=== PATIENT | male | born 1935 ===

== ENCOUNTER 2018-10-30 15:08 | Observation (INO) | payer OTHER ==
[2018-10-30 15:48] LABS: Absolute Monocytes 1.2 K/uL (0.1-1.3); Absolute Neutrophil 8.6 K/uL (1.8-8.0); Basophils % 0.9 % (0-1.3); Eosinophils % 2.1 % (0-4.4); Hematocrit 45.2 % (39.6-49.0); Lymphocytes % 16.5 % (15.3-44.8); MPV 9.8 fL (7.6-11.3); Monocytes % 9.6 % (3.3-12.3); RBC Red Blood Cell Count 5.01 M/uL (4.33-5.43)
[2018-10-30] MEDS ORDERED: AZITHROMYCIN 250 MG TAB ONE (15:52)
[2018-10-30] MEDS ORDERED: NA CHLORIDE 0.9% 1,000 ML ONE (15:52)
[2018-10-30] MEDS ORDERED: CEFTRIAXONE/SWI 1gm 1 GM/10 ML SYR ONE ×2 (15:53→23:04)
[2018-10-30 16:27] LABS: ALT/SGPT 17 U/L (12-78); AST/SGOT 17 U/L (15-37); Albumin 3.9 g/dL (3.4-5.0); Alkaline Phosphatase 76 U/L (45-117); BUN Blood Urea Nitrogen 17 mg/dL (7-18); Bicarbonate 30 mmol/L (21-32); Bilirubin Direct 0.3 mg/dL (0-0.2); Bilirubin Total 1.2 mg/dL (0.2-1.0); CKMB Creatine Kinase MB 2.6 ng/mL (0.3-3.6); Creatine Phosphokinase 135 U/L (39-308); Glucose Level 147 mg/dL (74-106); Lipase 89 U/L (73-393); NT PRO-BNP 47 pg/mL (<450); Potassium 3.3 mmol/L (3.5-5.1); Protein, Total 7.9 g/dL (6.4-8.2); Sodium Level 141 mmol/L (136-145); Troponin (Emerg Dept Use Only) < 0.02 ng/mL (0.0-0.045)
[2018-10-30 16:37] LABS: Magnesium 1.3 mg/dL (1.8-2.4)
--- NOTE | 2018-10-30 16:50 | RAD REPORT ---
EXAM DESCRIPTION: [facility] Single View10/30/2018 4:15 pm CLINICAL HISTORY: Cough COMPARISON: none FINDINGS: Mild bibasilar lung opacities suspected Upper lobes appear clear The heart is normal size IMPRESSION: Mild bibasilar lung opacities probably represent mild pneumonia. This be followed until it is clear to help exclude a post obstructive process/underlying mass
--- NOTE | 2018-10-30 17:04 | EDPHYS ---
Physician Documentation [facility] Name: Lambert Gavin Age: 83 yrs Sex: Male : 1935 Arrival Date: 10/30/2018 Time: 15:12 Bed 15 Private MD: ED Physician Song Boyce HPI: 10/30 15:39 This 83 yrs old Unknown Male presents to ER via Ambulatory with complaints of Cough, ma2 Congestion. 15:39 The patient or guardian reports cough. Onset: The symptoms/episode began/occurred ma2 gradually, 3 day(s) ago. Severity of symptoms: At their worst the symptoms were moderate, in the emergency department the symptoms are unchanged. Associated signs and symptoms: Pertinent positives: rhinorrhea, sore throat, Pertinent negatives: ear ache. The patient has experienced similar episodes in the past. Historical: - Allergies: 15:19 No Known Allergies; sv - PMHx: 15:19 Diabetes - NIDDM; High Cholesterol; sv - PSHx: 15:19 None; sv - Immunization history:: Adult Immunizations up to date. - Social history:: Patient/guardian denies using alcohol, street drugs, The patient lives with family, Smoking status: Patient/guardian denies using tobacco. - Family history:: not pertinent. - Ebola Screening: : No symptoms or risks identified at this time. ROS: 15:39 Constitutional: Negative for fever, chills, and weight loss, Cardiovascular: Negative ma2 for chest pain, palpitations, and edema. 15:39 Respiratory: Positive for cough, dyspnea on exertion, Negative for wheezing. 15:39 All other systems are negative. Exam: 15:39 Constitutional: This is a well developed, well nourished patient who is awake, alert, ma2 and in no acute distress. ENT: Nares patent. No nasal discharge, no septal abnormalities noted. Tympanic membranes are normal and external auditory canals are clear. Oropharynx with no redness, swelling, or masses, exudates, or evidence of obstruction, uvula midline. Mucous membranes moist. Neck: Trachea midline, no thyromegaly or masses palpated, and no cervical lymphadenopathy. Supple, full range of motion without nuchal rigidity, or vertebral point tenderness. No Meningismus. Chest/axilla: Normal chest wall appearance and motion. Nontender with no deformity. No lesions are appreciated. Cardiovascular: Regular rate and rhythm with a normal S1 and S2. No gallops, murmurs, or rubs. Normal PMI, no JVD. No pulse deficits. 15:39 Abdomen/GI: Soft, non-tender, with normal bowel sounds. No distension or tympany. No guarding or rebound. No evidence of tenderness throughout. MS/ Extremity: Pulses equal, no cyanosis. Neurovascular intact. Full, normal range of motion. Neuro: Awake and alert, GCS 15, oriented to person, place, time, and situation. Cranial nerves II-XII grossly intact. Motor strength 5/5 in all extremities. Sensory grossly intact. Cerebellar exam normal. Normal gait. 15:39 Respiratory: moderate respiratory distress is noted, Respirations: no acute changes, Breath sounds: bronchial sounds, + upper airway congestion. wheezing: is not appreciated, Respiratory rate: 20 Vital Signs: 15:20 BP 107 / 80; Pulse 115; Resp 20; Temp 97.9; Pulse Ox 92% ; Weight 99.79 kg; Height 5 sv ft. 10 in. (177.80 cm); Pain 3/10; 15:30 Pulse Ox 99% on 2 lpm NC; hb 16:00 BP 114 / 69; Pulse 100; Resp 20; Pulse Ox 97% on 2 lpm NC; hb 17:00 BP 146 / 63; Pulse 86; Resp 20; Pulse Ox 97% on 2 lpm NC; Pain 0/10; hb 20:13 BP 139 / 85; Pulse 79; Resp 16; Temp 97.6; Pulse Ox 97% on 2 lpm NC; jb4 15:20 Body Mass Index 31.57 (99.79 kg, 177.80 cm) sv MDM: 15:22 Patient medically screened. ma2 15:39 Differential Diagnosis: Bronchitis Influenza Upper Respiratory Infection Sinusitis ma2 Pharyngitis. Data reviewed: vital signs, nurses notes. Counseling: I had a detailed discussion with the patient and/or guardian regarding: the historical points, exam findings, and any diagnostic results supporting the discharge/admit diagnosis, the presence of at least one elevated blood pressure reading (>120/80) during this emergency department visit, the need for outpatient follow up. Response to treatment: the patient's symptoms have markedly improved after treatment. 17:02 ED course: +SIRS + pneumonia will admit for observation discussed with dr. hui . oh10/30 15:23 Order name: Blood Culture Adult (2) 10/30 15:23 Order name: BMP [facility] 10/30 15:23 Order name: CBC with Diff; Complete Time: 16:01 10/30 15:23 Order name: Ckmb oh10/30 15:23 Order name: CPK oh10/30 15:23 Order name: D-Dimer; Complete Time: 16:44 oh10/30 15:23 Order name: Hepatic Function oh10/30 15:23 Order name: Lipase; Complete Time: 16:44 oh10/30 15:23 Order name: Magnesium; Complete Time: 16:44 oh10/30 15:23 Order name: NT PRO-BNP; Complete Time: 16:44 oh10/30 15:23 Order name: PT-INR; Complete Time: 16:44 oh10/30 15:23 Order name: Ptt, Activated; Complete Time: 16:44 oh10/30 15:23 Order name: Troponin (emerg Dept Use Only); Complete Time: 16:44 oh10/30 15:23 Order name: Influenza Screen (a \T\ B); Complete Time: 16:44 oh10/30 15:23 Order name: XRAY CXR (1 view); Complete Time: 16:58 10/30 15:23 Order name: EKG; Complete Time: 15:24 10/30 15:23 Order name: Cardiac monitoring; Complete Time: 15:40 oh10/30 15:23 Order name: EKG - Nurse/Tech; Complete Time: 15:40 oh10/30 15:23 Order name: IV Saline Lock; Complete Time: 15:40 10/30 15:23 Order name: Labs collected and sent; Complete Time: 15:40 oh10/30 15:23 Order name: O2 Per Protocol; Complete Time: 15:40 oh10/30 15:24 Order name: Blood Culture [facility] 10/30 15:24 Order name: Basic Metabolic Panel; Complete Time: 16:44 [facility] 10/30 15:24 Order name: CKMB Creatine Kinase MB; Complete Time: 16:44 [facility] 10/30 15:24 Order name: Creatine Phosphokinase; Complete Time: 16:44 [facility]MO 10/30 15:24 Order name: Liver (Hepatic) Function; Complete Time: 16:44 EDMO 10/30 15:23 Order name: O2 Sat Monitoring; Complete Time: 15:40 ma2 Administered Medications: 15:57 Drug: Rocephin 1 grams Route: IV; Rate: calculated rate; Site: right antecubital; hb 15:58 Drug: NS 0.9% 1000 ml Route: IV; Rate: 1 bolus; Site: right antecubital; hb 17:20 Follow up: Response: No adverse reaction; IV Status: Completed infusion hb 15:58 Drug: AZITHromycin 500 mg Route: PO; hb 17:28 Follow up: Response: No adverse reaction hb 17:11 Drug: Magnesium Oxide 400 mg Route: PO; hb Disposition: 10/30/18 17:03 Hospitalization ordered by Concepción Hui for Observation. Preliminary diagnosis is Pneumonia due to other infectious organisms, not elsewhere classified. - Bed requested for Telemetry/MedSurg (observation). - Status is Observation. jb4 - Condition is Stable. - Problem is new. - Symptoms have improved. UTI on Admission? No Signatures: Dispatcher [employer] EDMO Sharyn Ivan RN RN Izzy Cagle RN RN mw Baxter, Heather, RN RN hb Bryson, James, RN RN jb4 Song Boyce MD MD ma2 Corrections: (The following items were deleted from the chart) 20:32 17:03 Hospitalization Ordered by Concepción Hui MD for Observation. Preliminary diagnosis mw is Pneumonia due to other infectious organisms, not elsewhere classified. Bed requested for Telemetry/MedSurg (observation). Status is Observation. Condition is Stable. Problem is new. Symptoms have improved. UTI on Admission? No. ma2 21:40 20:32 10/30/2018 17:03 Hospitalization Ordered by Concepción Hui MD for Observation. jb4 Preliminary diagnosis is Pneumonia due to other infectious organisms, not elsewhere classified. Bed requested for Telemetry/MedSurg (observation). Status is Observation. Condition is Stable. Problem is new. Symptoms have improved. UTI on Admission? No. mw
--- NOTE | 2018-10-30 17:04 | ER ---
Nurse's Notes [facility] Name: Lambert Gavin Age: 83 yrs Sex: Male : 1935 Arrival Date: 10/30/2018 Time: 15:12 Bed 15 Private MD: Diagnosis: Pneumonia due to other infectious organisms, not elsewhere classified Presentation: 10/30 15:18 Presenting complaint: Patient states: cough, congestion x 2 days. Transition of care: sv patient was not received from another setting of care. Onset of symptoms was October 28, 2018. Care prior to arrival: None. 15:18 Method Of Arrival: Ambulatory sv 15:18 Acuity: ZOE 3 sv 15:45 Risk Assessment: Do you want to hurt yourself or someone else? Patient reports no hb desire to harm self or others. Initial Sepsis Screen: Does the patient meet any 2 criteria? No. Patient's initial sepsis screen is negative. Does the patient have a suspected source of infection? No. Patient's initial sepsis screen is negative. Historical: - Allergies: 15:19 No Known Allergies; sv - PMHx: 15:19 Diabetes - NIDDM; High Cholesterol; sv - PSHx: 15:19 None; sv - Immunization history:: Adult Immunizations up to date. - Social history:: Patient/guardian denies using alcohol, street drugs, The patient lives with family, Smoking status: Patient/guardian denies using tobacco. - Family history:: not pertinent. - Ebola Screening: : No symptoms or risks identified at this time. Screenin:39 Abuse screen: Denies threats or abuse. Denies injuries from another. Nutritional hb screening: No deficits noted. Tuberculosis screening: No symptoms or risk factors identified. Fall Risk None identified. Assessment: 15:35 General: Appears in no apparent distress. Behavior is calm, cooperative. Pain: Pain hb currently is 3 out of 10 on a pain scale. Neuro: Level of Consciousness is awake, alert, obeys commands, Oriented to person, place, time, situation. Cardiovascular: Heart tones S1 S2 present Capillary refill < 3 seconds Patient's skin is warm and dry. Respiratory: Airway is patent Respiratory effort is even, unlabored, Respiratory pattern is regular, symmetrical, Breath sounds with rhonchi bilaterally. GI: No signs and/or symptoms were reported involving the gastrointestinal system. : No signs and/or symptoms were reported regarding the genitourinary system. EENT: No signs and/or symptoms were reported regarding the EENT system. Derm: Skin is intact, is healthy with good turgor. Musculoskeletal: No signs and/or symptoms reported regarding the musculoskeletal system. 16:25 Reassessment: Patient appears in no apparent distress at this time. No changes from hb previously documented assessment. Patient and/or family updated on plan of care and expected duration. Pain level reassessed. Patient is alert, oriented x 3, equal unlabored respirations, skin warm/dry/pink. 17:29 Reassessment: Patient appears in no apparent distress at this time. No changes from hb previously documented assessment. Patient and/or family updated on plan of care and expected duration. Pain level reassessed. Patient is alert, oriented x 3, equal unlabored respirations, skin warm/dry/pink. 18:30 Reassessment: Patient appears in no apparent distress at this time. No changes from hb previously documented assessment. Patient and/or family updated on plan of care and expected duration. Pain level reassessed. Patient is alert, oriented x 3, equal unlabored respirations, skin warm/dry/pink. Admission ordered, awaiting room assignment at this time. 19:20 Reassessment: Patient appears in no apparent distress at this time. Patient and/or jb4 family updated on plan of care and expected duration. Pain level reassessed. Patient is alert, oriented x 3, equal unlabored respirations, skin warm/dry/pink. 20:30 Reassessment: Patient appears in no apparent distress at this time. Patient and/or jb4 family updated on plan of care and expected duration. Pain level reassessed. Patient is alert, oriented x 3, equal unlabored respirations, skin warm/dry/pink. 21:15 Reassessment: Patient appears in no apparent distress at this time. Patient and/or jb4 family updated on plan of care and expected duration. Pain level reassessed. Patient is alert, oriented x 3, equal unlabored respirations, skin warm/dry/pink. Pt transferred upstairs with tool rental technician. Vital Signs: 15:20 BP 107 / 80; Pulse 115; Resp 20; Temp 97.9; Pulse Ox 92% ; Weight 99.79 kg; Height 5 sv ft. 10 in. (177.80 cm); Pain 3/10; 15:30 Pulse Ox 99% on 2 lpm NC; hb 16:00 BP 114 / 69; Pulse 100; Resp 20; Pulse Ox 97% on 2 lpm NC; hb 17:00 BP 146 / 63; Pulse 86; Resp 20; Pulse Ox 97% on 2 lpm NC; Pain 0/10; hb 20:13 BP 139 / 85; Pulse 79; Resp 16; Temp 97.6; Pulse Ox 97% on 2 lpm NC; jb4 15:20 Body Mass Index 31.57 (99.79 kg, 177.80 cm) sv ED Course: 15:12 Patient arrived in ED. as 15:19 Triage completed. sv 15:20 Arm band placed on. sv 15:22 Song Boyce MD is Attending Physician. ma2 15:27 Ashley Harper, MELISSA is Primary Nurse. hb 15:30 Inserted saline lock: 20 gauge in right antecubital area, using aseptic technique. hb Blood collected. 15:39 Patient has correct armband on for positive identification. Bed in low position. Call hb light in reach. Side rails up X 1. school lunch monitor on. Pulse ox on. NIBP on. 15:41 Flu and/or RSV swab sent to lab. 5 15:41 Influenza Screen (a \T\ B) Sent. 5 15:46 EKG done, by technical maintenance technician. reviewed by Song Boyce MD. 3 16:15 XRAY CXR (1 view) In Process Unspecified. EDMS 16:25 Notified ED physician of a critical lab result(s). MAG 1.3. hb 17:03 Concepción Almazan MD is Hospitalizing Provider. ma2 21:15 No provider procedures requiring assistance completed. Patient admitted, IV remains in jb4 place. Administered Medications: 15:57 Drug: Rocephin 1 grams Route: IV; Rate: calculated rate; Site: right antecubital; hb 15:58 Drug: NS 0.9% 1000 ml Route: IV; Rate: 1 bolus; Site: right antecubital; hb 17:20 Follow up: Response: No adverse reaction; IV Status: Completed infusion hb 15:58 Drug: AZITHromycin 500 mg Route: PO; hb 17:28 Follow up: Response: No adverse reaction hb 17:11 Drug: Magnesium Oxide 400 mg Route: PO; hb Outcome: 17:03 Decision to Hospitalize by Provider. ma2 21:15 Admitted to Tele accompanied by nurse, accompanied by tech, via stretcher, with oxygen, jb4 with chart, Report called to MELISSA Saavedra 21:15 Condition: stable 21:15 Discharge instructions given to patient, Instructed on the need for admit, Demonstrated understanding of instructions. 21:40 Patient left the ED. jb4 Signatures: Dispatcher [employer] EDSharyn Egan, Alem Lamb RN, Heather, RN RN hb Bryson, James, RN RN jb4 Martinez, Maria [facility] Song Boyce MD MD tx2 Naye Santana 3 Corrections: (The following items were deleted from the chart) 10/31 03:35 03 21:30 Reassessment: Patient appears in no apparent distress at this time. Patient jb4 and/or family updated on plan of care and expected duration. Pain level reassessed. Patient is alert, oriented x 3, equal unlabored respirations, skin warm/dry/pink. Pt transferred upstairs with tool rental technician jb4
[2018-10-30] MEDS ORDERED: MAGNESIUM OXIDE 400 MG TAB ONE (17:27)
[2018-10-30] MEDS ORDERED: ACETAMINOPHEN 500 MG TAB PO PRN (21:35)
[2018-10-30] MEDS ORDERED: CEFTRIAXONE 1 GM/NS 50 ML 1 GM/50 ML BAG IV SCH (21:35)
--- NOTE | 2018-10-30 22:26 | P.HP ---
Certification for Inpatient Patient admitted to: Observation With expected LOS: <2 Midnights Practitioner: I am a practitioner with admitting privileges, knowledge of patient current condition, hospital course, and medical plan of care. Services: Services provided to patient in accordance with Admission requirements found in Title 42 Section 412.3 of the Code of Federal Regulations Patient History Date of Service: 10/30/18 Reason for admission: pneumonia History of Present Illness: Mr Gavin is an 83 years old male with history of dyslipidemia, DM II, who start about 3 days ago with productive cough and some SOB. The sputum was yellowish. He denied fever or chills, but has been more weak than usual. He denied been around sick people recently. Lab work in ER remarkable for leukocytosis, 12.1K, hypomagnesemia 1.3, D-Dimer mildly elevated, abnormal renal function. CXR shows bilateral opacity consistent with pneumonia. Influenza screening negative. Allergies No Known Allergies Allergy (Unverified 12/10/11 16:48) Home medications list reviewed: Yes - Past Medical/Surgical History -: DM II -: dyslipidemia Past Surgical History: Reviewed- Non-Contributory - Family History Family History: Reviewed- Non-Contributory - Social History Smoking Status: Never smoker Alcohol use: No CD- Drugs: No Place of Residence: Home Review of Systems 10-point ROS is otherwise unremarkable Physical Examination - Physical Exam General: Alert, In no apparent distress HEENT: Atraumatic, PERRLA, Mucous membr. moist/pink, EOMI, Sclerae nonicteric Neck: Supple, 2+ carotid pulse no bruit, No LAD, Without JVD or thyroid abnormality Respiratory: Normal air movement, Crackles/rales (bibasilar crackles) Cardiovascular: Regular rate/rhythm, Normal S1 S2 Gastrointestinal: Normal bowel sounds, No tenderness Musculoskeletal: No tenderness Integumentary: No rashes Neurological: Normal speech, Normal strength at 5/5 x4 extr, Normal tone, Normal affect Lymphatics: No axilla or inguinal lymphadenopathy - Studies Laboratory Data (last 24 hrs) 10/30/18 15:30: PT 11.8, INR 1.00, APTT 33.6 10/30/18 15:30: WBC 12.1 H, Hgb 15.6, Hct 45.2, Plt Count 219 10/30/18 15:30: Sodium 141, Potassium 3.3 L, BUN 17, Creatinine 1.35 H, Glucose 147 H, Magnesium 1.3 L*, Total Bilirubin 1.2 H, AST 17, ALT 17, Alkaline Phosphatase 76, Lipase 89 Microbiology Data (last 24 hrs): 10/30/18 15:30 Nasopharnyx Influenza Type A Antigen Screen - Final 10/30/18 15:30 Nasopharnyx Influenza Type B Antigen Screen - Final Assessment and Plan - Problems (Diagnosis) (1) Pneumonia Current Visit: Yes Status: Acute Qualifiers: Pneumonia type: due to unspecified organism Laterality: bilateral Lung location: lower lobe of lung Qualified Code(s): J18.1 - Lobar pneumonia, unspecified organism (2) Hypomagnesemia Current Visit: Yes Status: Acute (3) Acute kidney injury Current Visit: Yes Status: Acute (4) Diabetes mellitus Current Visit: Yes Status: Acute Qualifiers: Diabetes mellitus type: type 2 Diabetes mellitus superintendent container terminal insulin use: without detention use Diabetes mellitus complication status: with unspecified complications Qualified Code(s): E11.8 - Type 2 diabetes mellitus with unspecified complications - Plan Will admit the patient for mild bilateral pneumonia. Already started on empiric IV Rocephin and Azithromycin. Continue symptomatic medication. - Advance Directives Does patient have a Living Will: No Does patient have a Durable POA for Healthcare: No - Code Status/Comfort Care Code Status Assessed: Yes Code Status: Full Code Critical Care: No
[2018-10-30] MEDS: NA CHLORIDE 0.9% 1,000 ML IV SCH (22:59)
[2018-10-30 23:12] VITALS: BMI 30.9
[2018-10-31 03:47] LABS: Urine Appearance CLEAR; Urine Bilirubin NEGATIVE (NEG); Urine Blood NEGATIVE (NEG); Urine Color YELLOW; Urine Glucose NEGATIVE (NEG); Urine Protein NEGATIVE (NEG)
[2018-10-31 03:56] LABS: Urine Microscopic Reflex NO UMIC
[2018-10-31 06:37] LABS: Absolute Lymphocytes (CBC) 2.3 K/uL (0.7-4.9); Absolute Monocytes 1.1 K/uL (0.1-1.3); Absolute Neutrophil 5.3 K/uL (1.8-8.0); Basophils % 0.9 % (0-1.3); Eosinophils % 3.3 % (0-4.4); Hematocrit 41.8 % (39.6-49.0); Lymphocytes % 25.5 % (15.3-44.8); MPV 10.2 fL (7.6-11.3); Monocytes % 11.9 % (3.3-12.3); RBC Red Blood Cell Count 4.64 M/uL (4.33-5.43)
[2018-10-31 06:59] LABS: Albumin 3.7 g/dL (3.4-5.0); Bilirubin Total 0.9 mg/dL (0.2-1.0); Potassium 3.4 mmol/L (3.5-5.1); Protein, Total 7.3 g/dL (6.4-8.2)
[2018-10-31] MEDS ORDERED: CEFTRIAXONE/SWI 1gm 1 GM/10 ML SYR IV SCH (09:00)
[2018-10-31] MEDS ORDERED: AZITHROMYCIN IV 500 MG in NA CHLORIDE 0.9% 250 ML IVPB SCH (09:00)
[2018-10-31] MEDS ORDERED: Magnesium Sulfate 2gm IVPB 2 G/50 ML BAG IV ONE (09:38)
[2018-10-31] MEDS ORDERED: POTASSIUM CL SA 10 MEQ TAB PO ONE (09:38)
[2018-10-31 10:10] VITALS: O2SAT 93
[2018-10-31] MEDS: NA CHLORIDE 0.9% 1,000 ML IV SCH (10:55)
--- NOTE | 2018-10-31 12:10 | RAD REPORT ---
EXAM DESCRIPTION: CT - Chest For Pe Angio - 10/31/2018 11:53 am CLINICAL HISTORY: Chest pain. SOB, hypoxia r/out PE COMPARISON: No comparisons TECHNIQUE: CT angiogram of the pulmonary arteries was performed with MIP. All CT scans are performed using dose optimization technique as appropriate and may include automated exposure control or mA/KV adjustment according to patient size. FINDINGS: No evidence of pulmonary thromboembolism. No acute aortic finding demonstrated. The lungs are clear. No significant pericardial or pleural fluid. Moderate degenerative changes involve the thoracic spine. Prominent cyst is seen in the left upper qu adrant measuring 7 cm, potentially from the spleen, but incompletely assessed. IMPRESSION: No evidence of pulmonary thromboembolism.
[2018-10-31 12:34] VITALS: BP 144/86; TEMP 97.7
[2018-10-31] MEDS ORDERED: HOME MED 1 EA UNK (Lisinopril/Hydrochlorothiazide [Lisinopril-Hctz 10-12.5 Mg Tab] 1 TAB) PO SCH (21:00)
[2018-10-31] MEDS ORDERED: HOME MED 1 EA UNK (Tolterodine Tartrate [Detrol] 2 MG) PO SCH (21:00)
[2018-10-31] MEDS ORDERED: ATORVASTATIN 20 MG TAB PO SCH (21:00)
[2018-10-31] MEDS ORDERED: hydroCHLOROthiazide 12.5 MG CAP PO SCH (21:00)
[2018-10-31] MEDS ORDERED: LISINOPRIL 10 MG TAB PO SCH (21:00)
[2018-10-31] MEDS ORDERED: NIACIN 1000 MG PO SCH (21:00)
--- NOTE | 2018-10-31 21:59 | DS ---
Date of Discharge: 10/31/2018 Consultants: None. Discharge Diagnoses: 1.Pneumonia, bilateral lower lobe. 2.Hypomagnesemia. 3.Acute kidney injury. 4.Diabetes mellitus type 2 without long-term use of insulin with hyperglycemia. 5.Obesity, BMI 30.9. 6.Hypokalemia. 7.Hypomagnesemia. Hospital Course: The patient is an 83-year-old male, came in with shortness of breath, leukocytosis, elevated D-dimer, and acute kidney injury, thought to have pneumonia. Influenza screen was negative . His chest x-ray showed bilateral opacities. The patient was started on IV antibiotics. He did no t appear septic. White count normalized. His D-dimer was elevated and he was tachycardic and hypoxi c. Therefore, CT angio was done, which was negative for PE. The patient's potassium was low, which was corrected as well as his magnesium, which was replaced. His kidney function improved with IV flu id hydration. The patient's blood cultures are pending at this time. The patient was then cleared f or discharge. He was able to ambulate without difficulty. He was doing well on room air. It is 93% . The patient was then sent home in a stable condition. Activity: As tolerated. Medications: As per medication reconciliation list. Finish off course of antibiotics. Followup: Follow up with primary care physician in 2-3 days. Return to ER for worsening condition. Do not take metformin for the next 48 hours due to contrast administration to avoid kidney dysfuncti on. Diet: Diabetic. Physical Examination: General: Awake, alert, and oriented, no acute distress. CV: S1. S2. No murmurs. Respiratory: Moving air well bilaterally. No wheezing. Gastrointestinal: Abdomen is soft, nontender, and nondistended. Positive bowel sounds. Extremities: No clubbing, cyanosis, or edema. Neurologic: Nonfocal. SA/MODL Voice ID: [id number] Report ID: [id number]
[2018-11-01] MEDS ORDERED: PANTOPRAZOLE 40MG TABLET PO SCH (06:30)
[2018-11-01] MEDS ORDERED: METOPROLOL XL 100 MG TAB PO SCH (09:00)
[2018-11-01] MEDS ORDERED: AMLODIPINE 10 MG TAB PO SCH (09:00)
== END 2018-10-31 13:44 | disposition home or self-care (01) ==
LOC: ER 15:08 → ERHOLD 18:12 → 4TH 21:13
PROVIDERS: ADMIT Family Medicine; ATTEND Internal Medicine
DX: J18.9 Pneumonia, unspecified organism (principal); E83.42 Hypomagnesemia; N17.9 Acute kidney failure, unspecified; E87.6 Hypokalemia; E11.65 Type 2 diabetes mellitus with hyperglycemia; E78.5 Hyperlipidemia, unspecified; E66.9 Obesity, unspecified; Z68.30 Body mass index [BMI] 30.0-30.9, adult
CPT/HCPCS: 96361; 93005; 87040 ×2; 85025 ×2; 80048; 36415; 83735 ×2; 82550; 85610; 85379; 80076; 85730; 81003; 84484; 82553; 83690; 80053; 83880; 87804 ×2; 71275; 71045; 94760 ×2; 96374; 99285; Q9967; J0456; J3475; J0696 ×3; J7030 ×2; G0378 ×2